=== PATIENT | male | born 1955 | race Caucasian/White ===

== ENCOUNTER → 2016-08-07 | Outpatient (CLI) | payer MEDICARE ==
[~2016-08-07] VITALS: Ht 162.6 cm; Wt 74.0 kg
[~2016-08-07] MED LIST: ACET-2161 PO; ASPI-1099 PO; CANA300T PO; CIPR750T6 PO; DULO30CA52 PO; GABA-338 PO; HYDR-4072 PO; INSU100V20 SQ; INSU300I SQ; METO5TAB2 PO; OMEG1CAP79 PO; SIMV40TA82 PO
== END ==
LOC: RC 12:46
PROVIDERS: ATTEND Family Medicine
DX: R06.09 Other forms of dyspnea (principal); R06.02 Shortness of breath
CPT/HCPCS: 94010; 94726

== ENCOUNTER → 2016-08-21 | Outpatient (CLI) | payer MEDICARE | LOC: NEU 14:43 | PROVIDERS: ATTEND Nurse Practitioner | DX: G56.03 Carpal tunnel syndrome, bilateral upper limbs (principal); G56.21 Lesion of ulnar nerve, right upper limb; E11.42 Type 2 diabetes mellitus with diabetic polyneuropathy; G60.8 Other hereditary and idiopathic neuropathies; Z79.4 Long term (current) use of insulin | CPT/HCPCS: 95886; 95912 ==